=== PATIENT | female | born 1970 | race Caucasian/White ===

== ENCOUNTER 2021-03-02 09:39 | Emergency (ER) | payer SELFPAY ==
[2021-03-02 10:41] VITALS: BP 133/95; PULSE 70; RESP 18; TEMP 36.8; O2SAT 97; BMI 32.2
[2021-03-02 10:44] LABS: Apearance,Urine Clear (Clear); Bilirubin,Urine Negative (Negative); Blood, Urine Negative (Negative); Color,Urine Yellow (Yellow); Glucose,Urine (UA) 1000 (Negative); Ketones,Urine Negative (Negative); Protein,Urine Negative (Negative); UTC Leukocyte Esterase,Urine Negative (Negative); UTC Nitrate,Urine Negative (Negative); Urobilinogen,Urine 0.2 EU/dl (0.2)
--- NOTE | 2021-03-02 11:28 | HMH.EDUTC ---
[facility] [place] Disposition Clinical Impression: UTI symptoms Disposition: Home, Self-Care Condition on Discharge: Good Instructions: Urinary Tract Infection, DI for Urinary Tract Infection (UTI), DI for Flank Pain Additional Instructions: *Increase fluids. Water not Soda or Tea *Continue antibiotic immediately and be sure to take as ordered for the FULL length of time although you should start to see improvement over the next 48 hours *Pyridium as needed Remember this medication will turn your urine [place]. This is normal but it will stain what ever it gets on *You should not use Pyridium for more than 48 hours. If so , follow up with your primary physician to review urine culture and ensure that antibiotic is adequate for infection *Be SURE to follow up anytime for new or worsening symptoms with your family doctor. AND in 48 hours for urine culture results with your family doctor, if you do not have a doctor then you may call back to the [facility] for urine culture results and further treatment. We do recommend that you choose and establish care with a Primary Care Physician. AND follow up with them in 10-14 days to repeat UA to ensure infection is resolved and blood no longer present *Be sure to let your PCP know that we sent urine cultures from the [facility] so they can follow up to ensure that you area the on the correct antibiotic Call your doctor office and make appointment for 48 hours (2 days from today) to follow up and get the results of your urine culture and further treatment Follow up with your Family Doctor if symptoms do not improve Prescriptions: Phenazopyridine HCl [Pyridium 200mg Tablet] 200 pow PO TID #6 tab Transmission Status: Pending to [facility] Referrals: Alaina Zamora [Primary Care Provider] - As needed Time of Disposition: 11:49 Medical Decision Making - Kayode Inquiry Pt receiving controlled substance: No Kayode was queried for this patient: No Vital Signs: 03/02/21 10:41 Temperature 98.3 F Temperature Source Temporal Artery Scan Pulse Rate [Right Brachial] 70 Respiratory Rate 18 Blood Pressure [Right Arm] 133/95 H Blood Pressure Mean [Right Arm] 107 Blood Pressure Source [Right Arm] Automatic Cuff Blood Pressure Position [Right Arm] Sitting 02 Sat by Pulse Oximetry 97 Oxygen Delivery Method Room Air - Lab Data Lab results reviewed: Yes: I reviewed the patient's lab results. Lab Results 03/02/21 10:38: Urine Color Yellow, Urine Appearance Clear, Urine pH 6.0, Ur Specific [place] 1.020, Urine Protein Negative, Urine Glucose (UA) 1000, Urine Ketones Negative, Urine Blood Negative, Urine Nitrate Negative, Urine Bilirubin Negative, Urine Urobilinogen 0.2, Ur Leukocyte Esterase Negative Medical Decision Narrative: Patient denies history of kidneys stones [facility] [place] HPI - General Stated complaint: possible uti Time Seen by Provider: 03/02/21 11:28 Mode of Arrival: Ambulatory Source of Information: Patient Limitations: No Limitations Description of Symptoms (Recalled from Triage Doc. by RN): uti HEENT Symptoms (Recalled from RN notes): No Resp Symptoms (Recalled from RN notes): No Skin Symptoms (Recalled from RN notes): No MS Symptoms (Recalled from RN notes): No Functional Status (Recalled from RN notes): yes - History of Present Illness Provider Complaint: Patient state that she was seen a few days ago at [facility] and started on Bactrim States that she is still having achy like feeling in her back and thought it would have been better by now States that she came in today to get her urine checked again to see if the infection was clearing up - Related Data Home Medications Medication Instructions Recorded Confirmed Sulfamethoxazole/Trimethoprim 1 tab PO Q12H 03/02/21 03/02/21 [Sulfamethoxazole-Tmp Ds Tablet*] Previous Rx's Medication Instructions Recorded Phenazopyridine HCl [Pyridium 200 pow PO TID #6 tab 03/02/21 200mg Tablet] Allergies Allergy/AdvReac Type S
[2021-03-02 11:54] VITALS: BP 133/95; PULSE 70; RESP 18; TEMP 36.8; O2SAT 97
== END 2021-03-02 11:58 | disposition home or self-care (01) ==
PROVIDERS: Emergency Provider Nurse Practitioner; PCP Nurse Practitioner Family
DX: N30.00 Acute cystitis without hematuria (principal); E11.9 Type 2 diabetes mellitus without complications; I10 Essential (primary) hypertension; F17.210 Nicotine dependence, cigarettes, uncomplicated
CPT/HCPCS: 81003; 99202; G0463

== ENCOUNTER 2021-03-08 05:20 | Emergency (ER) | payer SELFPAY ==
[2021-03-08 05:21] VITALS: BP 177/90; PULSE 85; RESP 19; TEMP 36.7; O2SAT 97; BMI 32.2
[2021-03-08 05:30] VITALS: BP 165/90; PULSE 85
--- NOTE | 2021-03-08 05:43 | CT_ITS ---
PROCEDURE INFORMATION: Exam: CT Abdomen And Pelvis With Contrast Exam date and time: 03/08/2021 5:43 AM Age: 50 years old Clinical indication: Abdominal pain; Acute; Additional info: Llq adb radiates to L back// previous surgery only a no others/ TECHNIQUE: Imaging protocol: Computed tomography of the abdomen and pelvis with contrast. Radiation optimization: All CT scans at this facility use at least one of these dose optimization techniques: automated exposure control; mA and/or kV adjustment per patient size (includes targeted exams where dose is matched to clinical indication); or iterative reconstruction. Contrast material: ISOVUE; Contrast volume: 75 ml; Contrast route: IV; COMPARISON: ABDPELW CT ABD PELVIS W/ CONTRAST 04/14/2015 4:24 PM FINDINGS: Diaphragm: Small hiatal hernia. Liver: The liver is diffusely decreased in density, compatible with hepatic steatosis. Liver length is 21 cm and spleen measures maximally 13 cm. Gallbladder and bile ducts: Cholelithiasis noted. No pericholecystic inflammatory changes to suggest acute cholecystitis. Pancreas: Normal. No ductal dilation. Spleen: See Liver finding. Adrenal glands: Left adrenal 12 mm hypodensity, suggestive of an adenoma, but incompletely assessed. Kidneys and ureters: Kidneys enhance symmetrically and there is no evidence for obstructive uropathy. Stomach and bowel: In the left upper quadrant, there is small bowel jejunal submucosal prominence and hyperemia, raising possibility for enteritis in the appropriate clinical context. Appendix: The appendix is visualized and appears unremarkable. Intraperitoneal space: Unremarkable. No free air. No significant fluid collection. Vasculature: Aortoiliac atherosclerotic calcifications noted without focal ectasia. Lymph nodes: Unremarkable. No enlarged lymph nodes. Urinary bladder: Unremarkable as visualized. Reproductive: Unremarkable as visualized. Bones/joints: There are age-related degenerative changes of the visualized spine. No acute fracture. Soft tissues: Unremarkable. IMPRESSION: 1. In the left upper quadrant, there is small bowel jejunal submucosal prominence and hyperemia, raising possibility for enteritis in the appropriate clinical context. 2. Cholelithiasis noted. No pericholecystic inflammatory changes to suggest acute cholecystitis. 3. Hepatic steatosis. 4. Hepatosplenomegaly. 5. Small hiatal hernia.
[2021-03-08 05:50] LABS: Basophils # 0.2 K/mm3 (0-0.2); Basophils % 1.8 % (0.1-2.0); Eosinophils # 0.3 K/mm3 (0.0-0.4); Eosinophils % 2.1 % (0.1-12.0); Hematocrit 47.6 % (37.0-47.0); Hemoglobin 15.4 g/dL (12.2-16.2); Lymphocytes # 3.4 K/mm3 (0.7-4.5); Lymphocytes % 28.1 % (10-50); Mean Corpuscular HGB Conc 32.4 g/dL (31.8-35.4); Mean Corpuscular Volume 95.6 fl (81-99); Microscopic, Urine URINE MICROSCOPIC (MICROSCOPIC); Monocytes # 0.6 K/mm3 (0.1-1.0); Monocytes % 4.6 % (1.7-9.3); Neutrophils # 7.6 K/mm3 (1.8-7.8); Neutrophils % 63.4 % (37.0-80.0); Platelet Count 316 K/mm3 (142-424); Red Blood Count 4.98 M/mm3 (4.20-5.40); Red Cell Distribution Width 14.1 % (11.5-17.5)
--- NOTE | 2021-03-08 05:54 | HMH.EDNVD ---
ED Disposition Clinical Impression: UTI (urinary tract infection) Qualifiers: Urinary tract infection type: site unspecified Hematuria presence: without hematuria Qualified Code(s): N39.0 - Urinary tract infection, site not specified Diabetes mellitus Qualifiers: Diabetes mellitus type: type 2 Diabetes mellitus intermediate insulin use: unspecified roasterman insulin use status Diabetes mellitus complication status: with other specified complication Qualified Code(s): E11.69 - Type 2 diabetes mellitus with other specified complication Cholelithiasis Qualifiers: Cholelithiasis location: gallbladder Cholecystitis presence: without cholecystitis Biliary obstruction: without biliary obstruction Qualified Code(s): K80.20 - Calculus of gallbladder without cholecystitis without obstruction Disposition: Home, Self-Care Condition on Discharge: Good Instructions: DI for Urinary Tract Infection (UTI) Additional Instructions: use meds and see pcp about urine culture results and follow up about diabetes and bp Prescriptions: levoFLOXacin [Levaquin 500mg tab] 500 mg PO DAILY #7 tab Transmission Status: Pending to [facility] Referrals: Alaina Zamora [Primary Care Provider] - - Critical Care Critical Care Time: No Attestation: On 03/08/21, the high probability of a clinically significant, sudden or life threatening deterioration of the following system(s) required my full and direct attention, intervention and personal management. The time I documented below is in addition to time spent performing reported procedures but includes the following listed in this critical care notation. Medical Decision Making - Medical Records Medical records reviewed: Yes: I reviewed the patient's medical records. - Kayode Inquiry Pt receiving controlled substance: No Vital Signs: 03/08/21 05:21 Temperature 98.1 F Temperature Source Oral Pulse Rate [Right] 85 Respiratory Rate 19 Blood Pressure [Right Arm] 177/90 H Blood Pressure Mean [Right Arm] 119 Blood Pressure Source [Right Arm] Automatic Cuff 02 Sat by Pulse Oximetry 97 Oxygen Delivery Method Room Air - Lab Data Lab results reviewed: Yes: I reviewed the patient's lab results. Lab Results 03/08/21 05:25: WBC 12.0 H, RBC 4.98, Hgb 15.4, Hct 47.6 H, MCV 95.6, MCH 31.0, MCHC 32.4, RDW 14.1, Plt Count 316, MPV 8.0, Neut % (Auto) 63.4, Lymph % (Auto) 28.1, Rutherford % (Auto) 4.6, Eos % (Auto) 2.1, Baso % (Auto) 1.8, Neut # (Auto) 7.6, Lymph # (Auto) 3.4, Rutherford # (Auto) 0.6, Eos # (Auto) 0.3, Baso # (Auto) 0.2, ESR 15 03/08/21 05:25: Sodium 133 L, Potassium 4.3, Chloride 95 L, Carbon Dioxide 29, Anion Gap 13.3, BUN 14, Creatinine 0.70, Estimated Creat Clear 143, Estimated GFR 88, Est GFR ( Amer) 106, Glucose 390 H, Calcium 10.2, Total Bilirubin 0.4, AST 19, ALT 15, Alkaline Phosphatase 77, C-Reactive Protein 9.9 H, Total Protein 7.6, Albumin 4.5, Globulin 3.1, Albumin/Globulin Ratio 1.5, Amylase 57, Procalcitonin 0.045 03/08/21 05:25: Lipase 113 03/08/21 05:25: Urine Color Yellow, Urine Appearance Clear, Urine pH 5.5, Ur Specific [place] 1.025, Urine Protein Negative, Urine Glucose (UA) 3+, Urine Ketones Negative, Urine Blood Negative, Urine Nitrate Negative, Urine Bilirubin Negative, Urine Urobilinogen 0.2, Ur Leukocyte Esterase Negative, Urine WBC 20-50, Amorphous Sediment Trace 03/08/21 05:25: Hemoglobin A1c 13.6 H 03/08/21 05:25: Acetone Level None detected Result diagrams: 03/08/21 05:25 03/08/21 05:25 Orders (Tests/Meds): ED MEDICATIONS Generic Name Dose Route Start Last Admin Trade Name Joselitoq PRN Reason Stop Dose Admin Sodium Chloride 1,000 mls @ 999 mls/hr 03/08/21 05:45 03/08/21 05:52 Sod Chlor 0.9% 1000ml Bag IV 03/08/21 06:45 999 mls/hr .Q1H1M YOUSUF Administration Ceftriaxone Sodium 1 gm/ 50 mls @ 100 mls/hr 03/08/21 06:30 03/08/21 06:42 Sodium Chloride IV 03/22/21 06:29 100 mls/hr Q24H YOUSUF Administration Discontinued Medications Gener
[2021-03-08 05:55] LABS: Alanine Aminotransferase 15 U/L (12-78); Albumin Level 4.5 g/dl (3.5-5.0); Albumin/Globulin Ratio 1.5 (1.1-1.8); Alkaline Phosphatase 77 U/L (38-126); Amylase 57 U/L (30-110); Anion Gap 13.3 mEq/L (5-15); Aspartate Amino Transferase 19 U/L (14-36); Bilirubin,Total 0.4 mg/dl (0.2-1.3); Blood Urea Nitrogen 14 mg/dl (7-17); Calcium 10.2 mg/dl (8.4-10.2); Carbon Dioxide 29 mmol/L (22.0-30.0); Chloride 95 mmol/L (98-107); Creatinine Clearance Estimated 143 mL/min (50-200); Estimated Glomerular Filt Rate 88 ml/min (>60); GFR (African American) 106 ML/MIN (>60); Globulin 3.1 g/dL (1.3-3.2); Glucose 390 mg/dl (74-100); Lipase 113 U/L (23-300); Potassium 4.3 mmoL/L (3.5-5.1); Sodium 133 mmol/L (136-145); Total Protein,Serum 7.6 g/dl (6.3-8.2)
[2021-03-08 05:56] LABS: Appearance,Urine CLEAR (Clear); Bilirubin,Urine Negative (Negative); Blood, Urine Negative (Negative); Color,Urine YELLOW (Yellow); Glucose,Urine (UA) 3+ (Negative); Ketones,Urine Negative (Negative); Leukocyte Esterase,Urine Negative (Negative); Nitrate,Urine Negative (Negative); PH,Urine 5.5 (5.0-8.5); Protein,Urine Negative (Negative); Specific Gravity, Urine 1.025 (1.005-1.030); Urobilinogen,Urine 0.2 EU/dl (0.2)
[2021-03-08 05:59] LABS: Amorphous Sediment,Urine Trace /lpf; WBC,Urine 20-50 #/hpf (0-3)
[2021-03-08 06:00] VITALS: BP 160/87; PULSE 82
[2021-03-08 06:01] LABS: C-Reactive Protein 9.9 mg/L (0-4)
[2021-03-08 06:03] LABS: Acetone, Serum (Rapid) None Detected (None Detect)
[2021-03-08 06:12] LABS: Hemoglobin A1C 13.6 % (4.0-6.0)
[2021-03-08 06:14] LABS: Procalcitonin 0.045 ng/mL (0.0-2.0)
[2021-03-08 06:20] LABS: Erythrocyte Sedimentation Rate 15 mm/hr (0-30)
--- NOTE | 2021-03-08 06:25 | PC.NURSE ---
Pt to ct
[2021-03-08 07:49] VITALS: BP 160/87; PULSE 82; RESP 19; TEMP 36.7; O2SAT 97
== END 2021-03-08 07:49 | disposition home or self-care (01) ==
PROVIDERS: Emergency Provider Emergency Medicine; PCP Nurse Practitioner Family
DX: N30.00 Acute cystitis without hematuria (principal); E11.65 Type 2 diabetes mellitus with hyperglycemia; K80.20 Calculus of gallbladder without cholecystitis without obstruction
CPT/HCPCS: 74177; 80053; 81001; 82009; 82150; 83036; 83690; 84145; 85025; 85651; 86140; 87086; 96365; 96375; 99283; J0696; J2405; Q9967

== ENCOUNTER 2021-03-18 09:21 | Emergency (ER) | payer SELFPAY ==
[2021-03-18 09:48] VITALS: BP 147/89; PULSE 82; RESP 16; TEMP 36.7; O2SAT 96; BMI 32.2
[2021-03-18 09:52] LABS: Apearance,Urine Cloudy (Clear); Color,Urine Yellow (Yellow); Protein,Urine Negative (Negative)
[2021-03-18 09:53] LABS: Glucose,Urine (UA) 4+ (Negative)
[2021-03-18 09:55] LABS: Blood, Urine Trace (Negative); Ketones,Urine TRACE (Negative)
[2021-03-18 09:56] LABS: Bilirubin,Urine Negative (Negative); UTC Leukocyte Esterase,Urine Trace (Negative); UTC Nitrate,Urine Negative (Negative); Urobilinogen,Urine 0.2 EU/dl (0.2)
--- NOTE | 2021-03-18 10:45 | HMH.EDUTC ---
[facility] [place] Clinical Impression: UTI (urinary tract infection) Qualifiers: Urinary tract infection type: site unspecified Hematuria presence: with hematuria Qualified Code(s): N39.0 - Urinary tract infection, site not specified Disposition: Home, Self-Care Condition on Discharge: Good Instructions: DI for Urinary Tract Infection (UTI), Phenazopyridine Additional Instructions: Drink plenty of fluids. Take tylenol or ibuprofen for pain or fever. Take the medications as directed. Follow up with your regular doctor. GO TO THE ER FOR ANY WORSENING SYMPTOMS The pyridium will make your urine turn orange, this is an expected side effect. It will stain your clothes if it comes into contact with them. Prescriptions: Ibuprofen [Ibuprofen 600mg Tablet] 600 mg PO Q6HP PRN #30 tab PRN Reason: Mild Pain Transmission Status: Received by [facility] Nitrofurantoin Monohyd/M-Cryst [Macrobid 100 mg Capsule] 100 mg PO BID 5 Days #10 cap Transmission Status: Received by [facility] Phenazopyridine HCl [Pyridium 200mg Tablet] 200 pow PO TID #6 tab Transmission Status: Received by [facility] Referrals: Alaina Zamora [Primary Care Provider] - Forms: Work/School Release Time of Disposition: 10:47 Medical Decision Making - Medical Records Medical records reviewed: No: I reviewed the patient's medical records. - Kayode Inquiry Pt receiving controlled substance: No Vital Signs: 03/18/21 09:48 03/18/21 10:50 Temperature 98.1 F 98.1 F Temperature Source Oral Pulse Rate 82 Pulse Rate [Left] 82 Respiratory Rate 16 16 Blood Pressure 147/89 H Blood Pressure [Right Arm] 147/89 H Blood Pressure Mean [Right Arm] 108 02 Sat by Pulse Oximetry 96 - Lab Data Lab results reviewed: Yes: I reviewed the patient's lab results. Lab Results 03/18/21 09:51: Urine Color Yellow, Urine Appearance Cloudy, Urine pH 5.0, Ur Specific [place] 1.020, Urine Protein Negative, Urine Glucose (UA) 4+, Urine Ketones Trace, Urine Blood Trace, Urine Nitrate Negative, Urine Bilirubin Negative, Urine Urobilinogen 0.2, Ur Leukocyte Esterase Trace Orders (Tests/Meds): ORDERS Category Date Time Status Urine Culture Stat Micro 03/18/21 09:51 Results Medical Decision Narrative: She refused to go to the ER for further workup. She request to be treated for a uti again and she will follow up from there. [facility] [place] H[place] - General Stated complaint: possible uti Time Seen by Provider: 03/18/21 10:00 Mode of Arrival: Ambulatory Source of Information: Patient Limitations: No Limitations Description of Symptoms (Recalled from Triage Doc. by RN): pt c/o pain with urination x2 weeks. pt has been see here, [place] and in the ER during the past two weeks. HEENT Symptoms (Recalled from RN notes): No Resp Symptoms (Recalled from RN notes): No Skin Symptoms (Recalled from RN notes): No MS Symptoms (Recalled from RN notes): No Functional Status (Recalled from RN notes): wnl - History of Present Illness Provider Complaint: She c/o dysuria for the past 2 weeks. Her symptoms are getting worse. She has been treated twice for her symptoms and she states they get better then return once she is finished with the medications. - Related Data Home Medications Medication Instructions Recorded Confirmed Phenazopyridine HCl [Pyridium 200 pow PO TID 03/08/21 03/08/21 200mg Tablet] Previous Rx's Medication Instructions Recorded levoFLOXacin [Levaquin 500mg 500 mg PO DAILY #7 tab 03/08/21 tab] Ibuprofen [Ibuprofen 600mg 600 mg PO Q6HP PRN #30 tab 03/18/21 Tablet] Nitrofurantoin Monohyd/M-Cryst 100 mg PO BID 5 Days #10 cap 03/18/21 [Macrobid 100 mg Capsule] Phenazopyridine HCl [Pyridium 200 pow PO TID #6 tab 03/18/21 200mg Tablet] Allergies Allergy/AdvReac Type Severity Reaction Status Date / Time Penicillins [PENICILLINS] Allergy Mild Verified 02/25/21 14:09
[2021-03-18 10:50] VITALS: BP 147/89; PULSE 82; RESP 16; TEMP 36.7
== END 2021-03-18 10:52 | disposition home or self-care (01) ==
PROVIDERS: Emergency Provider Nurse Practitioner Family; PCP Nurse Practitioner Family
DX: N39.0 Urinary tract infection, site not specified (principal); E11.9 Type 2 diabetes mellitus without complications; I10 Essential (primary) hypertension; F17.210 Nicotine dependence, cigarettes, uncomplicated
CPT/HCPCS: 81003; 87086; 99202; G0463

== ENCOUNTER → 2021-03-26 13:47 | Outpatient (CLI) | payer OTHER, SELFPAY | PROVIDERS: Visit Provider Nurse Practitioner | DX: Z20.822 Contact with and (suspected) exposure to COVID-19 (principal) | CPT/HCPCS: C9803; U0003; U0005 ==

== ENCOUNTER → 2021-04-10 13:03 | Outpatient (CLI) | payer OTHER, SELFPAY | PROVIDERS: Visit Provider Nurse Practitioner | DX: U07.1 COVID-19 (principal) | CPT/HCPCS: C9803; U0003; U0005 ==

== ENCOUNTER → 2021-04-28 09:30 | Outpatient (CLI) | payer OTHER, SELFPAY ==
--- NOTE | 2021-04-28 09:40 | US_ITS ---
FINAL REPORT CLINICAL HISTORY: UNSPEC ABD PAIN/ RULE OUT HERNIA---llq pain rad into back FINDINGS: US ABDOMINAL LIMITED Sonographic images of the left lower quadrant were obtained. No hernia is seen. There are several borderline inguinal nodes which are likely reactive. IMPRESSION: No hernia visualized. Reviewed, Interpreted and Dictated by Azeem Sharma III, MD Transcribed by Mayuri Levine Authenticated by Azeem Sharma III, MD on 04/28/2021 11:57:[address] [facility]
== END ==
LOC: RAD 09:33
PROVIDERS: PCP Nurse Practitioner Family; Visit Provider Nurse Practitioner Family
DX: R10.9 Unspecified abdominal pain (principal)
CPT/HCPCS: 76700

== ENCOUNTER 2021-06-08 16:51 | Emergency (ER) | payer OTHER, SELFPAY ==
[2021-06-08 17:35] VITALS: BP 166/95; PULSE 78; RESP 18; TEMP 36.8; O2SAT 96; BMI 31.4
--- NOTE | 2021-06-08 17:47 | XR_ITS ---
PROCEDURE INFORMATION: Exam: XR Right Ribs with PA Chest Exam date and time: 06/08/2021 5:51 PM Age: 50 years old Clinical indication: Pain; Other: Posterior ribs; Additional info: No fall or injury -- upper rib pain -posterior. TECHNIQUE: Imaging protocol: XR Right ribs with PA chest. Views: 3 views COMPARISON: CR CXR CHEST(2 VIEWS-NOT PORTABLE) 04/14/2015 3:08 PM FINDINGS: Lungs: Unremarkable. No consolidation. Pleural spaces: Unremarkable. No pleural effusion. No pneumothorax. Heart/Mediastinum: Unremarkable. No cardiomegaly. Bones/joints: Unremarkable. IMPRESSION: No acute findings.
--- NOTE | 2021-06-08 18:46 | HMH.EDUTC ---
[facility] [place] Disposition Clinical Impression: Rib pain on right side Disposition: Home, Self-Care Condition on Discharge: Good Instructions: DI for Rib Contusion Additional Instructions: Go home and rest. It would be best if you rested tomorrow too. No heavy lifting. No twisting. Take the oral medications as directed. Follow up with your regular doctor. GO TO THE ER FOR ANY WORSENING SYMPTOMS OR CONCERN, ESPECIALLY BOWEL OR BLADDER ISSUES, SADDLE AREA NUMBNESS, FEVER, ETC Prescriptions: Ibuprofen [Ibuprofen 600mg Tablet] 600 mg PO Q6HP PRN #30 tab PRN Reason: Mild Pain Transmission Status: Received by [facility] Cyclobenzaprine HCl [Cyclobenzaprine 10mg Tab] 10 mg PO BIDP PRN #20 tab PRN Reason: Muscle Spasm Transmission Status: Received by [facility] Referrals: Alaina Zamora [Primary Care Provider] - Forms: Work/School Release Time of Disposition: 18:48 Medical Decision Making - Medical Records Medical records reviewed: No: I reviewed the patient's medical records. - Kayode Inquiry Pt receiving controlled substance: No Vital Signs: 06/08/21 17:35 06/08/21 18:54 Temperature 98.2 F 98.2 F Temperature Source Oral Pulse Rate 78 Pulse Rate [Left Brachial] 78 Respiratory Rate 18 18 Blood Pressure 166/95 H Blood Pressure [Left Arm] 166/95 H Blood Pressure Mean [Left Arm] 118 Blood Pressure Source [Left Arm] Automatic Cuff Blood Pressure Position [Left Arm] Sitting 02 Sat by Pulse Oximetry 96 Oxygen Delivery Method Room Air [facility] [place] HPI - General Stated complaint: Pain r sHOULDER Time Seen by Provider: 06/08/21 17:40 Mode of Arrival: Ambulatory Source of Information: Patient Limitations: No Limitations Description of Symptoms (Recalled from Triage Doc. by RN): PATIENT C/O PAIN IN RIGHT POSTERIOR SHOULDER THAT RADIATES AROUND RIB AREA AND UNDER BREAST X 1 WEEK. NO KNOWN INJURY HEENT Symptoms (Recalled from RN notes): No Resp Symptoms (Recalled from RN notes): No Skin Symptoms (Recalled from RN notes): No MS Symptoms (Recalled from RN notes): Yes Functional Status (Recalled from RN notes): WNL - History of Present Illness Provider Complaint: She c/o right sided rib tenderness and pain when she breathes deep or coughs. She denies known injury. She denies any cough or congestion or fever or feeling bad. - Related Data Previous Rx's Medication Instructions Recorded Cyclobenzaprine HCl 10 mg PO BIDP PRN #20 tab 06/08/21 [Cyclobenzaprine 10mg Tab] Ibuprofen [Ibuprofen 600mg 600 mg PO Q6HP PRN #30 tab 06/08/21 Tablet] Allergies Allergy/AdvReac Type Severity Reaction Status Date / Time Penicillins [PENICILLINS] Allergy Mild Verified 02/25/21 14:09 - Worker's Comp Is this a Worker's Comp case?: No [facility] History - Hepatitis A Screen Drug use history?: No High risk sexual behaviors?: No History of sexually transmitted infection?: No Currently employed?: No Childcare worker?: No Do you have indoor plumbing?: Yes Do you have electricity?: Yes Attestation statement:: This patient has been screened for Hepatitis A risk factors. I have reviewed the patient's past medical history: Yes Medical History: Reports:: Diabetes Mellitus Type 2, Hypertension Denies:: Cancer, Diabetes Mellitus Type 1 Other Surgeries: Yes: No Previous Surgery, , Tubal Ligation Amputation: No - Social History Smoking Status: Current every day smoker Tobacco Type: cigarettes # Packs/Day (cigarettes): 1 Alcohol Intake: never Alcohol Intake Frequency:: a few times a month Substance Use Type: denies use Occupational Status: other Family Hx:: Diabetes ROS Obtained: Yes All systems reviewed & no additional complaints - Constitutional Constitutional: Denies chills, Denies fever(s), Denies poor appetite - Eyes Eyes: Denies eye discharge - ENT Ears, Nose, Mouth, and Throat: Denies dizziness, Denies otalgia, Denies sore throat - Cardiovascular Cardiovas
[2021-06-08 18:54] VITALS: BP 166/95; PULSE 78; RESP 18; TEMP 36.8; O2SAT 96
== END 2021-06-08 19:01 | disposition home or self-care (01) ==
PROVIDERS: Emergency Provider Nurse Practitioner Family; PCP Nurse Practitioner Family
DX: R07.89 Other chest pain (principal); E11.9 Type 2 diabetes mellitus without complications; I10 Essential (primary) hypertension; F17.210 Nicotine dependence, cigarettes, uncomplicated
CPT/HCPCS: 71101; 99213; G0463

== ENCOUNTER 2021-09-13 17:19 | Emergency (ER) | payer OTHER, SELFPAY ==
[2021-09-13 17:30] VITALS: BP 130/76; PULSE 70; RESP 18; TEMP 37; O2SAT 97; BMI 30.4
--- NOTE | 2021-09-13 18:10 | HMH.EDUTC ---
[facility] [place] Disposition Clinical Impression: Cellulitis of right breast Bug bite with infection Qualifiers: Encounter type: initial encounter Qualified Code(s): W57.XXXA - Bitten or stung by nonvenomous insect and other nonvenomous arthropods, initial encounter Disposition: Home, Self-Care Condition on Discharge: Good Instructions: Cellulitis Additional Instructions: Keep the affected area clean and dry. Follow up with your regular doctor. Take the antibiotics as directed and apply the topical antibiotics as directed. Apply warm wet compresses to the affected area three or four times per day. GO TO THE ER FOR ANY WORSENING SYMPTOMS Prescriptions: Sulfamethoxazole/Trimethoprim [Bactrim DS tablet] 1 each PO BID 10 Days #20 tab Transmission Status: Pending to [facility] Mupirocin [Bactroban 2% Ointment 22gm tube] 1 applicatio TP TID 7 Days #1 gm Transmission Status: Pending to [facility] cephALEXin [cephALEXin 500mg capsule] 500 mg PO Q6H 10 Days #40 cap Transmission Status: Pending to [facility] Referrals: Alaina Zamora [Primary Care Provider] - Time of Disposition: 18:19 Medical Decision Making - Medical Records Medical records reviewed: No: I reviewed the patient's medical records. - Kayode Inquiry Pt receiving controlled substance: No Vital Signs: 09/13/21 17:30 09/13/21 18:21 Temperature 98.6 F 98.6 F Temperature Source Oral Pulse Rate 70 Pulse Rate [Left Brachial] 70 Respiratory Rate 18 18 Blood Pressure 130/76 Blood Pressure [Left Arm] 130/76 Blood Pressure Mean [Left Arm] 94 Blood Pressure Source [Left Arm] Automatic Cuff Blood Pressure Position [Left Arm] Sitting 02 Sat by Pulse Oximetry 97 Oxygen Delivery Method Room Air [facility] [place] HPI - General Stated complaint: bump on Right breast side Time Seen by Provider: 09/13/21 17:45 Mode of Arrival: Ambulatory Source of Information: Patient Limitations: No Limitations Description of Symptoms (Recalled from Triage Doc. by RN): PATIENT C/O SORE BUMP TO TOP OF RIGHT BREAST THAT SHE NOTICED YESTERDAY MORNING. REDNESS AND SWELLING NOTED TO AREA HEENT Symptoms (Recalled from RN notes): No Resp Symptoms (Recalled from RN notes): No Skin Symptoms (Recalled from RN notes): Yes MS Symptoms (Recalled from RN notes): No Functional Status (Recalled from RN notes): WNL - History of Present Illness Provider Complaint: She states that for the past 1 day she has had a red tender area on her right breast. She was working out side all day, then the next morning she woke up with this wound. She believes a bug has bit her and it is now getting infected. - Related Data Home Medications Medication Instructions Recorded Confirmed Gabapentin [Neurontin 300mg 300 mg PO TID 09/13/21 09/13/21 capsule] Metformin HCl [Metformin 1000mg 1,000 mg PO BID 09/13/21 09/13/21 Tablets] Rosuvastatin Calcium 40 mg PO HS 09/13/21 09/13/21 glipiZIDE [Glipizide ER] 10 mg PO BID 09/13/21 09/13/21 Previous Rx's Medication Instructions Recorded Mupirocin [Bactroban 2% Ointment 1 applicatio TP TID 7 Days #1 gm 09/13/21 22gm tube] Sulfamethoxazole/Trimethoprim 1 each PO BID 10 Days #20 tab 09/13/21 [Bactrim DS tablet] cephALEXin [cephALEXin 500mg 500 mg PO Q6H 10 Days #40 cap 09/13/21 capsule] Allergies Allergy/AdvReac Type Severity Reaction Status Date / Time Penicillins [PENICILLINS] Allergy Mild Verified 02/25/21 14:09 - Worker's Comp Is this a Worker's Comp case?: No [facility] History - Hepatitis A Screen Attestation statement:: This patient has been screened for Hepatitis A risk factors. I have reviewed the patient's past medical history: Yes Medical History: Reports:: Diabetes Mellitus Type 2, Hypertension Denies:: Cancer, Diabetes Mellitus Type 1 Other Surgeries: Yes: No Previous Surgery, , Tubal Ligation Amputation: No - Social History Smoking Status: Current every day s
[2021-09-13 18:21] VITALS: BP 130/76; PULSE 70; RESP 18; TEMP 37; O2SAT 97
== END 2021-09-13 18:28 | disposition home or self-care (01) ==
PROVIDERS: Emergency Provider Nurse Practitioner Family; PCP Nurse Practitioner Family
DX: N61.0 Mastitis without abscess (principal); W57.XXXA Bitten or stung by nonvenomous insect and other nonvenomous arthropods, initial encounter
CPT/HCPCS: 99212; G0463

== ENCOUNTER 2022-10-05 21:17 | Emergency (ER) | payer BC, SELFPAY ==
[2022-10-05 21:18] VITALS: BP 143/91; PULSE 84; RESP 18; TEMP 36.8; O2SAT 100; BMI 31.9
--- NOTE | 2022-10-05 21:43 | XR_ITS ---
PROCEDURE INFORMATION: Exam: XR Right Shoulder Exam date and time: 10/05/2022 9:50 PM Age: 51 years old Clinical indication: Pain; Shoulder; Right TECHNIQUE: Imaging protocol: Radiologic exam of the right shoulder. Views: 2 or more views. COMPARISON: CR XR RIBS RT MIN 3V W [id number] 06/08/2021 5:51 PM FINDINGS: Bones/joints: Normal. Soft tissues: Normal. IMPRESSION: No acute findings.
--- NOTE | 2022-10-05 22:16 | PC.NURSE ---
CHECKED ON PT NOTHING NEEDED AT THIS TIME,CALL LIGHT AT BS
[2022-10-05 22:37] VITALS: BP 129/78; PULSE 74; RESP 17; TEMP 36.8; O2SAT 98
--- NOTE | 2022-10-08 01:15 | HMH.EDGENADL ---
Discharge Plan Disposition Patient Disposition: Home, Self-Care Condition: Good Prescriptions Prescriptions: New methocarbamol 750 mg tablet 750 mg PO Q8H Qty: 30 0RF lidocaine 5 % adhesive patch,medicated See Rx Instructions .ROUTE .COMPLEX Qty: 30 0RF Rx Instructions: leave on most painful area for up to 12 hrs No Action glipizide 10 MG tablet extended release 24hr 10 mg PO BID metformin 1,000 MG tablet 1,000 mg PO BID gabapentin 300 MG capsule 300 mg PO TID rosuvastatin 40 MG tablet 40 mg PO HS sulfamethoxazole-trimethoprim 1 EACH tablet 1 each PO BID 10 Days Qty: 20 0RF cephalexin 500 MG capsule 500 mg PO Q6H 10 Days Qty: 40 0RF mupirocin 22 GM ointment 1 applicatio TP TID 7 Days Qty: 1 0RF Referrals Follow up/Referrals: Alaina Zamora [Primary Care Provider] - See instructions Clinical Impressions Clinical Impression: Right shoulder pain Discharge ED Provider: García Roach Adult HPI General Chief complaint: PAIN Stated complaint: neck and arm pain Time Seen by Provider: 10/05/22 21:42 Mode of Arrival: Ambulatory Source of Information: Patient Limitations: No Limitations Description of Symptoms (Recalled from ER Triage Doc. by RN): Pt complians of right arm pain in which she thinks is a pinched nerve. States she originally thought it was a pulled muscle when it began 5 days ago. No spinal hx. History of Present Illness HPI narrative: 51-year-old female history as reported below presents with right-sided shoulder/neck/arm pain. Patient reports that pain began after she was walking her pitbull and may have gotten pulled. She reports that she has some pain with range of motion of the shoulder. Reports no recent other trauma. Denies weakness. No history of IV drug use, no history of spinal issues. Related Data Home Medications Medication Instructions Recorded Confirmed gabapentin 300 mg capsule 300 mg PO TID NEUROPATHY 09/13/21 09/13/21 glipizide 10 mg tablet, extended 10 mg PO BID Diabetes 09/13/21 09/13/21 release 24 hr metformin 1,000 mg tablet 1,000 mg PO BID Diabetes 09/13/21 09/13/21 rosuvastatin 40 mg tablet 40 mg PO HS Cholesterol 09/13/21 09/13/21 Previous Rx's Medication Instructions Recorded cephalexin 500 mg capsule 500 mg PO Q6H 10 days #40 caps 09/13/21 mupirocin 2 % topical ointment 1 applicatio topical TID 7 days ##1 09/13/21 sulfamethoxazole 800 1 each PO BID 10 days #20 tabs 09/13/21 mg-trimethoprim 160 mg tablet lidocaine 5 % topical patch See Rx Instructions topical 10/05/22 .COMPLEX #30 ea methocarbamol 750 mg tablet 750 mg PO Q8H #30 tabs 10/05/22 Allergies Allergy/AdvReac Type Severity Reaction Status Date / Time Penicillins [PENICILLINS] Allergy Mild Verified 02/25/21 14:09 [facility] Disclaimer: The information contained in this section may have been updated after the patient was seen, as this information can be updated by other users. Social History Smoking Status: Current every day smoker tobacco type: cigarettes packs per day: 1 second hand exposure: Yes alcohol intake: never substance use type: denies use current occupational status: other Travel in the last 8 weeks: None ROS Obtained: Yes All systems reviewed & no additional complaints except as documented Physical Exam General General appearance: alert and in no apparent distress Head Head exam: atraumatic and normocephalic Eye Eye exam: Present normal appearance, PERRL and EOMI ENT ENT exam: Present normal oropharynx and normal external ear exam Neck Neck exam: Present normal inspection and full ROM Chest Chest inspection: Present normal inspection and symmetric chest wall rise; Absent tenderness Respiratory Respiratory exam: Present normal lung sounds bilaterally; Absent respiratory distress Cardiovascular Cardiovascular exam: Present regular rate and normal rhythm Abdominal Exam Abdominal exam:
== END 2022-10-05 22:42 | disposition home or self-care (01) ==
PROVIDERS: Emergency Provider Emergency Medicine; PCP Nurse Practitioner Family
DX: M25.511 Pain in right shoulder (principal); M54.2 Cervicalgia; F17.210 Nicotine dependence, cigarettes, uncomplicated
CPT/HCPCS: 73030; 99283

== ENCOUNTER → 2023-01-06 14:29 | Outpatient (CLI) | payer BC, SELFPAY ==
--- NOTE | 2023-01-06 14:33 | CT_ITS ---
FINAL REPORT TECHNIQUE: Thin section axial images were obtained through the cervical spine without contrast. Multiplanar reconstruction images were obtained from the axial data. Exam was performed using dose reduction techniques. CLINICAL HISTORY: PINCHED NERVE, NECK AND RT ARM PAIN COMPARISON: None FINDINGS: There is no acute fracture or acute malalignment of the cervical spine. There is no evidence of unilateral or bilateral facet lock. The craniocervical junction is intact. Vertebral body height is preserved. No acute paraspinal abnormality is identified. C2-3: No central canal stenosis. No neural foraminal narrowing. C3-4: Mild sashk-zirndqm-iccl-left neural foraminal narrowing due to facet osteoarthropathy. C4-5: Mild disc osteophyte complex. No central canal stenosis. No significant neural foraminal narrowing. C5-6: Broad-based disc osteophyte complex. Mild central canal stenosis. Moderate bilateral neural foraminal narrowing. C6-7: Broad-based disc osteophyte complex asymmetric to the right. Mild central canal stenosis. Moderate [id number]-left neural foraminal narrowing. C7-T1: No central canal stenosis or neural foraminal narrowing. IMPRESSION: Mild multilevel degenerative disc disease. No acute osseous abnormality Reviewed, Interpreted and Dictated by Neris Garcia MD Transcribed by Sakshi Scherer Authenticated and [facility]
== END ==
PROVIDERS: PCP Nurse Practitioner Family; Visit Provider Nurse Practitioner
DX: M54.2 Cervicalgia (principal)
CPT/HCPCS: 72125

== ENCOUNTER → 2023-01-27 12:48 | Outpatient (CLI) | payer BC, SELFPAY ==
--- NOTE | 2023-01-27 12:52 | US_ITS ---
FINAL REPORT TECHNIQUE: Real-time grayscale and color ultrasound of the thyroid was performed. CLINICAL HISTORY: HYPOTHYROIDISM COMPARISON: None FINDINGS: The thyroid gland measures 27 x 13 x 11 mm on the right and 33 x 10 x 14 mm on the left. The isthmus measures 2 mm. The parenchyma is heterogeneous. Nodules: On the right is a predominantly hypoechoic TR 3 nodule measuring 6 x 5 mm. IMPRESSION: Right TR 3 nodule. No follow-up required per TI-RADS criteria. Reviewed, Interpreted and Dictated by Quan Pablo MD Transcribed by Sakshi Scherer Authenticated and [facility]
== END ==
PROVIDERS: PCP Nurse Practitioner Family; Visit Provider Nurse Practitioner
DX: E03.9 Hypothyroidism, unspecified (principal)
CPT/HCPCS: 76536

== ENCOUNTER 2023-04-05 13:00 | Outpatient (RCR) | payer BC, SELFPAY | END 2023-04-05 14:00 | disposition home or self-care (01) | LOC: PT 13:00 | PROVIDERS: PCP Nurse Practitioner Family; Visit Provider Nurse Practitioner | DX: M50.30 Other cervical disc degeneration, unspecified cervical region (principal) | CPT/HCPCS: 97010; 97012; 97014; 97035; 97110; 97140; 97163; 97164; G0283 ==

== ENCOUNTER 2024-07-26 12:45 | Outpatient (RCR) | payer OTHER, SELFPAY | END 2024-07-26 23:59 | disposition home or self-care (01) | LOC: PT 12:45 | PROVIDERS: Visit Provider Nurse Practitioner | DX: M54.2 Cervicalgia (principal) | CPT/HCPCS: 97163 ==

== ENCOUNTER 2024-08-20 13:00 | Outpatient (RCR) | payer OTHER, SELFPAY | END 2024-08-20 23:59 | disposition home or self-care (01) | LOC: PT 13:00 | PROVIDERS: Visit Provider Nurse Practitioner | DX: M54.2 Cervicalgia (principal) | CPT/HCPCS: 97014; 97110; 97140; G0283 ==

== ENCOUNTER 2024-09-04 12:55 | Outpatient (RCR) | payer OTHER, SELFPAY | END 2024-09-04 23:59 | disposition home or self-care (01) | LOC: PT 12:55 | PROVIDERS: Visit Provider Nurse Practitioner | DX: M54.2 Cervicalgia (principal) | CPT/HCPCS: 97535 ==